=== PATIENT | male | born 1990 | race Hispanic/Latino ===

== ENCOUNTER → 2022-02-20 09:33 | Outpatient (CLI) | payer OTHER, SELFPAY ==
--- NOTE | 2022-02-20 09:37 | DI.MRI.S_ITS ---
PROCEDURE: MR KNEE RT WO CON INDICATIONS: RIGHT KNEE PAIN TECHNIQUE: Noncontrast sagittal PD fast spin echo and T2 fast spin echo with fat saturation, sagittal 3-D FLASH with fat saturation; coronal T1 spin echo and PD fast spin echo with fat saturation, and axial PD fast spin echo with fat saturation through the knee. COMPARISON: None. FINDINGS: Image quality: Excellent. Menisci: Discoid lateral meniscus without tear is present. The medial and lateral menisci demonstrate otherwise normal morphology and internal signal. The meniscal root ligaments appear intact. Cruciate ligaments: The anterior and posterior cruciate ligaments appear intact. Medial structures: The medial collateral ligament appears intact. Visualized portions of the pes anserinus tendons appear normal. No abnormal bursal fluid. Lateral structures: The lateral collateral ligament, long and short heads of the biceps femoris tendon appear intact. The popliteus tendon appears normal. Iliotibial band appears normal. Anterior structures: The quadriceps and patellar tendons appear intact. Lateral patellar subluxation. Mild lateral ventral trochlear prominence. Moderate edema within the superolateral aspect of the infrapatellar fat pad. Bones and cartilage: No bone marrow contusions or fractures. Instrumentation tract within the distal femur is present. Mild articular cartilage loss diffusely overlies the weight-bearing aspects of the medial femoral condyle and medial tibial plateau. Severe articular cartilage loss overlies the lateral patellar facet inferiorly. Joint space: There is a small knee joint effusion. No Renee's cyst. Normal appearing synovial plicae are incidentally noted. IMPRESSION: 1. No internal derangement. 2. Findings consistent with lateral patellofemoral friction syndrome in the appropriate clinical setting. There is associated lateral patellofemoral compartment articular cartilage loss and mild lateral ventral trochlear prominence. 3. Discoid lateral meniscus without tear. 4. Small knee joint effusion. Dictated by: Rainer Nava M.D. on 02/20/2022 at 10:07 Approved by: Rainer Nava M.D. on 02/20/2022 at 10:09
== END ==
PROVIDERS: Referring Provider Student in an Organized Health Care Education/Training Program; Visit Provider Student in an Organized Health Care Education/Training Program
DX: M25.561 Pain in right knee (principal); M25.461 Effusion, right knee
CPT/HCPCS: 73721

== ENCOUNTER → 2022-12-01 12:39 | Outpatient (CLI) | payer OTHER, SELFPAY ==
--- NOTE | 2022-12-01 12:41 | DI.MRI.S_ITS ---
PROCEDURE: MR LUMBAR SPINE WO CON INDICATIONS: Radiculopathy, lumbar region TECHNIQUE: Noncontrast sagittal T1 spin echo and T2 fast echo, sagittal STIR, and T2 fast spin echo through the lumbar spine. In cases with scoliosis, additional coronal T2 fast spin echo may be performed. COMPARISON: None. FINDINGS: Image quality: Excellent. Alignment and Curvature: No plain films are available for comparison, for numbering purposes. Thus, for the purposes of this examination, 5 lumbar type vertebral bodies will be presumed, as denoted on the montage panel. This should be confirmed and correlated with plain films, prior to any lumbar spinal intervention. Loss of normal lumbar lordosis. Bone Marrow: Marrow is of normal overall signal. No acute vertebral body compression fractures. Spinal Cord: Conus medullaris terminates at the mid L1 level. Visualized cord demonstrates normal signal and size. Paraspinous Soft Tissues: No paravertebral masses. T12-L1: Normal appearance. L1-L2: Mild epidural lipomatosis. Mild facet and ligamentum flavum hypertrophy. Mild diffuse disc bulge. Mild canal stenosis. Mild bilateral foraminal stenosis. L2-L3: Mild ligamentum flavum hypertrophy and epidural lipomatosis. Mild canal stenosis. No foraminal stenosis. L3-L4: Mild disc desiccation and diffuse disc bulge. Mild facet and ligamentum flavum hypertrophy. Mild epidural lipomatosis. Mild canal stenosis. Mild bilateral foraminal stenosis. L4-L5: Normal appearance. L5-S1: Normal appearance. IMPRESSION: Mild multilevel degenerative disc and facet disease, as well as ligamentum flavum hypertrophy, causing mild canal and foraminal stenosis as described above. No neural impingement. Dictated by: Rainer Nava M.D. on 12/01/2022 at 14:44 Transcribed by: ELHAM on 12/01/2022 at 14:45 Approved by: Rainer Nava M.D. on 12/01/2022 at 16:54
== END ==
PROVIDERS: Referring Provider Student in an Organized Health Care Education/Training Program; Visit Provider Student in an Organized Health Care Education/Training Program
DX: M51.16 Intervertebral disc disorders with radiculopathy, lumbar region (principal)
CPT/HCPCS: 72148